=== PATIENT | female | born 1980 | race Caucasian/White ===

== ENCOUNTER → 2016-12-14 | Outpatient (CLI) | payer OTHER | LOC: LAB 17:42 | DX: T50.995A Adverse effect of other drugs, medicaments and biological substances, initial encounter (principal); L24.5 Irritant contact dermatitis due to other chemical products; J30.89 Other allergic rhinitis; H10.45 Other chronic allergic conjunctivitis; L23.0 Allergic contact dermatitis due to metals; R94.5 Abnormal results of liver function studies; N39.0 Urinary tract infection, site not specified; K21.9 Gastro-esophageal reflux disease without esophagitis | CPT/HCPCS: 36415; 80076; 87086 ==

== ENCOUNTER → 2021-08-26 | Outpatient (CLI) | payer OTHER ==
[~2021-08-26] MED LIST: OMEPRAZOLE40 MG PO; TRAMADOL HCL50 MG PO; ZOFRAN4 MG PO
== END ==
LOC: ECHO 08:20 → NM 10:00
DX: R06.02 Shortness of breath (principal); R07.9 Chest pain, unspecified; I08.1 Rheumatic disorders of both mitral and tricuspid valves
CPT/HCPCS: ECHO; 78452; 93017; 93306; A9502; J2785